=== PATIENT | female | born 1970 | race Caucasian/White ===

== ENCOUNTER 2018-05-15 15:40 | Inpatient (IN) ==
[2018-05-15] MEDS ORDERED: ONDANSETRON 4 MG/2 ML VIAL IV PRN (16:30)
[2018-05-15] MEDS ORDERED: PROMETHAZINE 25 MG/1 ML VIAL IM PRN (16:30)
[2018-05-15] MEDS ORDERED: ACETAMINOPHEN 325 MG TABLET PO PRN (16:30)
[2018-05-15] MEDS ORDERED: THIAMINE INJ 100 MG, FOLIC ACID INJ 1 MG, MULTIVITAMIN INJ 10 ML in SODIUM CHLORIDE 0.9... IV ONE (16:32)
[2018-05-15] MEDS ORDERED: LORazepam 2 MG/1 ML VIAL IV PRN (16:32)
[2018-05-15] MEDS ORDERED: DICYCLOMINE 10 MG CAPSULE PO PRN (16:32)
[2018-05-15] MEDS ORDERED: METHOCARBAMOL 500 MG TABLET PO PRN (16:32)
[2018-05-15 17:33] LABS: Basophils % 0.2 % (0.0-0.8); Eosinophils # 0.1 10*3/uL (0.0-0.87); Eosinophils % 1.2 % (0.00-10.9); Hematocrit 43.3 VOL% (35.7-47.0); Hemoglobin 13.8 GM/DL (12.0-16.0); Immature Granulocytes % 0.2 %; Immature Granulocytes Absolute 0.01 #; Lymphocytes # 1.5 10*3/uL (1.4-4.0); Lymphocytes % 36.1 % (21.3-54.2); Mean Corpuscular HGB Conc 31.9 GM/DL (32-36); Mean Corpuscular Hemoglobin 30 PG (27-34); Mean Corpuscular Volume 93.5 FL (87-102); Mean Platelet Volume 10.3 FL (9.6-12.0); Monocytes # 0.3 10*3/uL (0.11-0.8); Monocytes % 7.8 % (1.7-12.7); Neutrophils # 2.2 10*3/uL (1.4-7.4); Neutrophils % 54.5 % (38.7-73.9); Platelet Count 145 T/CUMM (130-400); Red Blood Count 4.63 MC/CUMM (3.8-5.5); White Blood Count 4.1 T/CUMM (4-12)
[2018-05-15] MEDS: NICOTINE 21 MG/24 HR PATCH TRANSDERM SCH (17:44)
[2018-05-15] MEDS: chlordiazePOXIDE 25 MG CAPSULE PO SCH ×2 (17:44→23:05)
[2018-05-15] MEDS: PANTOPRAZOLE 40 MG TABLET PO SCH (17:44)
[2018-05-15 18:07] LABS: Albumin 3.9 G/DL (3.4-5.0); Bilirubin,Total 0.5 MG/DL (0.2-1.0); Calcium 8.6 MG/DL (8.5-10.1); Osmolality,Calculated 266.1 MOS/KG (273-304); Potassium 4.1 MMOL/L (3.5-5.1); Thyroid Stimulating Hormone 1.26 uIU/ml (0.358-3.74)
[2018-05-15 18:25] LABS: Folate 11.9 NG/ML (5.4-24.0)
[2018-05-15] MEDS: ENOXAPARIN 40 MG/0.4 ML SYRINGE SUBCUT SCH (20:15)
[2018-05-15 21:08] LABS: Apearance,Urine CLEAR (Clear); Bacteria,Urine Occasional /HPF (Few); Bilirubin,Urine Negative (Negative); Blood, Urine Small mg/dL (Negative); Glucose,Urine (UA) Negative (Negative); Ketones,Urine 5 mg/dL (Negative); Nitrite,Urine Negative (Negative); Protein,Urine 30 MG/DL; RBC,Urine 1 /HPF (0-4); Squamous Epithelial Cell,Urine Occasional /HPF (0-10); Urine Color Yellow (Yellow); Urine Urobilinogen < 2.0 EU/DL (0.2-1.0); WBC,Urine 1 /HPF (0-6)
[2018-05-15 22:25] LABS: Barbiturates Screen,Urine Negative (Negative); Benzodiazepines Screen,Urine Negative (Negative); Cannabinoid Screen,Urine Negative (Negative); Opiate Screen,Urine Negative (Negative); Phencyclidine Screen,Urine Negative (Negative)
[2018-05-15] MEDS: HydrOXYzine PAMOATE 25 MG CAPSULE PO PRN (23:06)
[2018-05-16] MEDS: SODIUM CHLORIDE 0.9% 1,000 ML IV SCH ×2 (00:31→11:31)
[2018-05-16] MEDS: chlordiazePOXIDE 25 MG CAPSULE PO SCH ×3 (04:42→17:43)
[2018-05-16 05:27] LABS: Calcium 8.3 MG/DL (8.5-10.1); Osmolality,Calculated 271.7 MOS/KG (273-304); Potassium 4.1 MMOL/L (3.5-5.1); Risk Ratio 3.57; VLDL CHOLESTEROL 21.6 MG/DL
[2018-05-16] MEDS: buPROPion XL 150 MG TABLET PO SCH (08:25)
[2018-05-16] MEDS: PANTOPRAZOLE 40 MG TABLET PO SCH (08:25)
[2018-05-16] MEDS: CITALOPRAM 40 MG TABLET PO SCH (08:25)
[2018-05-16] MEDS: OLMESARTAN 20 MG TABLET PO SCH (08:26)
[2018-05-16] MEDS: FOLIC ACID 1 MG TABLET PO SCH (08:26)
[2018-05-16] MEDS: THIAMINE 100 MG TABLET PO SCH (08:26)
[2018-05-16] MEDS: hydroCHLOROthiazide 25 MG TABLET PO SCH (08:26)
[2018-05-16] MEDS: NICOTINE 21 MG/24 HR PATCH TRANSDERM SCH (08:27)
[2018-05-16] MEDS ORDERED: CYANOCOBALAMIN 1000 MCG/1 ML VIAL IM ONE (09:57)
[2018-05-16] MEDS ORDERED: THIAMINE INJ 100 MG, FOLIC ACID INJ 1 MG, MULTIVITAMIN INJ 10 ML in DEXTROSE 5% NACL 0.... IV ONE (10:04)
[2018-05-16 10:32] LABS: Albumin 3.6 G/DL (3.4-5.0); Bilirubin,Direct 0.25 MG/DL (0.0-0.20); Bilirubin,Indirect 0.4 MG/DL (0.0-1.0); Bilirubin,Total 0.6 MG/DL (0.2-1.0); Total Protein 7.1 G/DL (6.4-8.3)
[2018-05-16] MEDS: MELOXICAM 7.5 MG TABLET PO SCH (11:11)
[2018-05-16] MEDS: DULoxetine 20 MG CAPSULE PO SCH (11:12)
[2018-05-16] MEDS: ENOXAPARIN 40 MG/0.4 ML SYRINGE SUBCUT SCH (20:18)
[2018-05-16] MEDS: SUBOXONE SL SCH (20:26)
[2018-05-16] MEDS ORDERED: ROSUVASTATIN 20 MG TABLET PO SCH (21:00)
[2018-05-16] MEDS: HydrOXYzine PAMOATE 25 MG CAPSULE PO PRN (22:25)
[2018-05-17] MEDS: chlordiazePOXIDE 25 MG CAPSULE PO SCH ×3 (00:29→17:06)
[2018-05-17 05:38] LABS: Albumin 3.1 G/DL (3.4-5.0); Calcium 8.8 MG/DL (8.5-10.1); Osmolality,Calculated 270.8 MOS/KG (273-304); Potassium 3.5 MMOL/L (3.5-5.1)
[2018-05-17] MEDS: CITALOPRAM 40 MG TABLET PO SCH (10:09)
[2018-05-17] MEDS: hydroCHLOROthiazide 25 MG TABLET PO SCH (10:09)
[2018-05-17] MEDS: OLMESARTAN 20 MG TABLET PO SCH (10:09)
[2018-05-17] MEDS: THIAMINE 100 MG TABLET PO SCH (10:09)
[2018-05-17] MEDS: FOLIC ACID 1 MG TABLET PO SCH (10:10)
[2018-05-17] MEDS: MELOXICAM 7.5 MG TABLET PO SCH (10:10)
[2018-05-17] MEDS: buPROPion XL 150 MG TABLET PO SCH (10:10)
[2018-05-17] MEDS: PANTOPRAZOLE 40 MG TABLET PO SCH (10:10)
[2018-05-17] MEDS: DULoxetine 20 MG CAPSULE PO SCH (10:11)
[2018-05-17] MEDS: NICOTINE 21 MG/24 HR PATCH TRANSDERM SCH (10:12)
[2018-05-17] MEDS: SUBOXONE SL SCH ×2 (17:04→20:16)
[2018-05-17] MEDS ORDERED: hydrALAZINE 20 MG/1 ML VIAL IV PRN ×2 (18:17→19:56)
[2018-05-17] MEDS: ENOXAPARIN 40 MG/0.4 ML SYRINGE SUBCUT SCH (20:18)
[2018-05-17] MEDS: HydrOXYzine PAMOATE 25 MG CAPSULE PO PRN (20:18)
[2018-05-17] MEDS ORDERED: amLODIPine 5 MG TABLET PO SCH (21:00)
[2018-05-18] MEDS: chlordiazePOXIDE 25 MG CAPSULE PO SCH ×2 (00:26→10:33)
[2018-05-18 05:23] LABS: Albumin 3.3 G/DL (3.4-5.0); Calcium 9.2 MG/DL (8.5-10.1); Potassium 3.4 MMOL/L (3.5-5.1); Total Protein 7.3 G/DL (6.4-8.3)
[2018-05-18] MEDS ORDERED: POTASSIUM CHLORIDE 20 MEQ TABLET PO ONE (07:14)
[2018-05-18 07:37] VITALS: BP 135/90
[2018-05-18] MEDS: FOLIC ACID 1 MG TABLET PO SCH (10:24)
[2018-05-18] MEDS: OLMESARTAN 20 MG TABLET PO SCH (10:24)
[2018-05-18] MEDS: hydroCHLOROthiazide 25 MG TABLET PO SCH (10:25)
[2018-05-18] MEDS: buPROPion XL 150 MG TABLET PO SCH (10:25)
[2018-05-18] MEDS: MELOXICAM 7.5 MG TABLET PO SCH (10:25)
[2018-05-18] MEDS: DULoxetine 20 MG CAPSULE PO SCH (10:25)
[2018-05-18] MEDS: THIAMINE 100 MG TABLET PO SCH (10:26)
[2018-05-18] MEDS: NICOTINE 21 MG/24 HR PATCH TRANSDERM SCH (10:26)
[2018-05-18] MEDS: CITALOPRAM 40 MG TABLET PO SCH (10:26)
[2018-05-18] MEDS: PANTOPRAZOLE 40 MG TABLET PO SCH (10:26)
[2018-05-18] MEDS: SUBOXONE SL SCH (10:27)
== END 2018-05-18 11:02 | disposition home or self-care (01) | DRG 897 ==
LOC: N.4E 17:00
PROVIDERS: ADMIT Internal Medicine; ATTEND Internal Medicine